=== PATIENT | male | born 1950 | race Caucasian/White ===

== ENCOUNTER 2017-03-02 10:57 | Emergency (ER) | payer BC ==
[~2017-03-02] VITALS: Ht 175.3 cm; Wt 97.8 kg
[2017-03-02 11:43] LABS: MCH 29.4 PG (29.0-34.0); MCV 89.1 FL (86-99); MEAN PLAT.VOLUME 11.1 uM^3 (9.0-12.4); PLATELET COUNT 173 K/uL (156-360); RBC DIS.WIDTH-CV 12.4 % (11.8-14.6); RBC DIS.WIDTH-SD 40.6 % (39-53); RED BLOOD COUNT 4.94 M/uL (4.00-5.50)
[2017-03-02 11:55] LABS: CHLORIDE 106 mEq/L (99-109); POTASSIUM 4.5 mEq/L (3.7-5.4); SODIUM 143 mEq/L (136-147)
[2017-03-02 11:56] LABS: GLUCOSE 98 mg/dL (70-99)
[2017-03-02 11:58] LABS: ANION GAP 9 MEQ/L (2-14)
[2017-03-02 12:01] LABS: GFR ESTIMATE (CALCULATED) > 59 mL/min/; UREA NITROGEN (BUN) 14 mg/dL (9-23)
[2017-03-02 12:03] LABS: TROP-I INTERPRETATION NEGATIVE; TROPONIN-I < 0.01 ng/mL (0.0-0.30)
[2017-03-02 14:11] LABS: D-DIMER ELISA < 150.00 ng/mLDDU (<230)
[2017-03-02 16:16] LABS: TROP-I INTERPRETATION NEGATIVE; TROPONIN-I < 0.01 ng/mL (0.0-0.30)
[2017-03-02 16:41] VITALS: BP 136/74
== END 2017-03-02 16:42 | disposition home or self-care (01) ==
LOC: EME 10:57 → EDBD 10:57 → EME 16:42
PROVIDERS: Physician Assistant
DX: R07.9 Chest pain, unspecified (principal)
CPT/HCPCS: 71020; 80048; 84484; 85027; 85379; 93005; 99281; 99284